=== PATIENT | female | born 1950 | race Hispanic/Latino ===

== ENCOUNTER 2021-08-24 06:09 | Day surgery (SDC) | payer OTHER, MEDICARE ==
[2021-08-18 12:33] LABS: BASOPHILS % (AUTO) 0.4 % (0.0-5.0); EOSINOPHILS % (AUTO) 2.2 % (0.0-8.0); HEMATOCRIT 36.1 % (36-48); LYMPHOCYTES % (AUTO) 24.8 % (21.0-51.0); MEAN CORPUSCULAR HEMOGLOBIN 27.7 pg (27.0-33.0); MEAN CORPUSCULAR HGB CONC 31.3 g/dL (32.0-36.0); MEAN CORPUSCULAR VOLUME 88.5 fL (79-99); NEUTROPHILS % (AUTO) 65.3 % (40.0-77.0); PLATELET COUNT (AUTO) 280 K/uL (130-400); RED BLOOD CELL COUNT(AUTO) 4.08 MIL/uL (4.00-5.50); RED CELL DISTRIBUTION WIDTH 14.5 % (11.0-15.5); WHITE BLOOD COUNT (AUTO) 7.3 K/uL (4.8-10.8)
[2021-08-18 12:53] LABS: CREATININE 0.8 mg/dL (0.5-1.5); POTASSIUM 4.1 mmol/L (3.5-5.1)
[2021-08-23 11:32] VITALS: BP 178/89
[~2021-08-24] VITALS: Ht 162.6 cm; Wt 79.8 kg
[2021-08-24] VITALS (16 sets, daily range): BP systolic 84–157; BP diastolic 42–77
[2021-08-24] MEDS: CEFAZOLIN SODIUM 1 GM VIAL IVP SCH ×2 (05:00→08:28)
[~2021-08-24 06:09] MED LIST: AMLO-257 PO; ATOR40TA69 PO; CLON0.2T PO; DILT120T PO; DULA1.5P SQ; FURO20TA4 PO; LOSA100T58 PO; METF-446 PO; PIOG15TA66 PO
[2021-08-24] MEDS ORDERED: 0.9%NACL 1000ML 1,000 ML IV ONE (06:51)
[2021-08-24] MEDS ORDERED: BUPIVACAINE/PF 0.5% 30ML VIAL ONE (07:29)
[2021-08-24] MEDS ORDERED: LIDOCAINE PF 100MG/5ML (2%) SYRINGE 5ML ONE (08:13)
[2021-08-24] MEDS ORDERED: SUCCINYLCHOLINE 200MG/10ML SYR ONE (08:13)
[2021-08-24] MEDS ORDERED: DEXAMETHASONE SOD PHOSPHATE 10MG/ML 1ML VIAL ONE (08:14)
[2021-08-24] MEDS ORDERED: PROPOFOL 10 MG/ML 20ML VIAL IV ONE (08:14)
[2021-08-24] MEDS ORDERED: MIDAZOLAM HCL 1 MG/ML 2ML VIAL ONE (08:14)
[2021-08-24] MEDS ORDERED: FENTANYL CITRATE PF 50 MCG/1 ML 2ML VIAL ONE ×2 (08:16→08:53)
[2021-08-24] MEDS ORDERED: MEPERIDINE-PF 25 MG/ML SYG ONE ×2 (09:18→09:50)
== END 2021-08-24 10:30 | disposition home or self-care (01) ==
LOC: DAH 06:09
PROVIDERS: ATTEND Orthopaedic Surgery
DX: M23.341 Other meniscus derangements, anterior horn of lateral meniscus, right knee (principal); Z20.822 Contact with and (suspected) exposure to COVID-19; M22.41 Chondromalacia patellae, right knee; I10 Essential (primary) hypertension; E11.9 Type 2 diabetes mellitus without complications; E66.9 Obesity, unspecified; E78.00 Pure hypercholesterolemia, unspecified; Z90.49 Acquired absence of other specified parts of digestive tract; Z90.710 Acquired absence of both cervix and uterus; Z98.890 Other specified postprocedural states; Z68.32 Body mass index [BMI] 32.0-32.9, adult; Z98.49 Cataract extraction status, unspecified eye
CPT/HCPCS: 29881; 36415; 80048; 82948 ×2; 85025; 87635; A4215; A4221; A4222; A4223; A4606; A4649 ×2; A4663; A4930; A6223; C9803; J0330; J0690; J1100; J2001; J2175 ×2; J2250; J2704; J3010 ×2; J7030; J3490